=== PATIENT | male | born 1980 | race Caucasian/White ===

== ENCOUNTER 2024-10-27 20:50 | Emergency (ER) | payer OTHER ==
[2024-10-27 21:15] VITALS: PULSE 85; RESP 18; O2SAT 100
== END 2024-10-27 21:44 | disposition left against medical advice (07) ==
LOC: ER 20:50
DX: M54.50 Low back pain, unspecified (principal); Z53.21 Procedure and treatment not carried out due to patient leaving prior to being seen by health care provider